=== PATIENT | female | born 1965 | race Caucasian/White ===

== ENCOUNTER 2020-10-22 13:55 | Emergency (ER) | payer OTHER ==
[~2020-10-22] VITALS: Ht 190.5 cm; Wt 85.3 kg
[2020-10-22 14:23] VITALS: BP 107/71
== END 2020-10-22 16:15 | disposition home or self-care (01) ==
LOC: ER 13:57
DX: S63.642A Sprain of metacarpophalangeal joint of left thumb, initial encounter (principal); X58.XXXA Exposure to other specified factors, initial encounter; Y93.89 Activity, other specified; Y92.89 Other specified places as the place of occurrence of the external cause; Y99.8 Other external cause status
CPT/HCPCS: 29125; 73140; 99283